=== PATIENT | female | born 1985 | race Caucasian/White ===

== ENCOUNTER 2017-08-14 21:20 | Emergency (ER) | payer OTHER ==
[~2017-08-14] VITALS: Ht 165.1 cm; Wt 68.0 kg
--- NOTE | 2017-08-14 22:01 | Emergency Room Report ---
History of Present Illness General Chief Complaint: Vomiting Source: Patient Present Illness HPI 31-year-old female history of anxiety, CRPS (chronic regional pain syndrome), presenting with abdominal pain and vomiting for one day. Complains of generalized abdominal pain. 5 episodes of nonbilious nonbloody vomiting. No diarrhea. Abdominal pain comes and goes. Denies any dysuria or hematuria. No constipation. Denies any abdominal surgeries in the past. Denies any drug use Allergies: Uncoded Allergies: STERI STRIPS (Allergy, Unknown, 08/14/17) Patient History Past Medical History: see triage record Past Surgical History: none Pertinent Family History: none Last Menstrual Period: A MONTH AGO Reviewed Nursing Documentation: PMH: Agreed; PSxH: Agreed Nursing Documentation-PMH History Of Psychiatric Problem: Yes Review of Systems All Other Systems: negative except mentioned in HPI Physical Exam Vital Signs Date Time Temp Pulse Resp B/P (MAP) Pulse Ox O2 Delivery O2 Flow Rate FiO2 08/14/17 21:26 99.2 131 17 137/89 97 Room Air 99.1 Sp02 EP Interpretation: reviewed, normal General Appearance: alert, GCS 15, non-toxic, moderate distress Head: normocephalic, atraumatic Eyes: bilateral eye normal inspection, bilateral eye PERRL, bilateral eye EOMI ENT: normal ENT inspection, normal pharynx, normal voice, moist mucus membranes Neck: normal inspection, full range of motion, supple Respiratory: normal inspection, lungs clear, normal breath sounds, no respiratory distress, no retraction, no wheezing, speaking full sentences, chest symmetrical Cardiovascular #1: normal capillary refill, tachycardia Cardiovascular #2: 2+ radial (R), 2+ radial (L) Gastrointestinal: other - Soft abdomen, nondistended, periumbilical left lower quadrant and right lower quadrant tenderness, no guarding or rigidity no rebound Musculoskeletal: normal inspection, back normal, normal range of motion, non- tender Neurologic: normal inspection, alert, oriented x3, responsive, motor strength/ tone normal, sensory intact, normal gait, speech normal Psychiatric: normal inspection, judgement/insight normal, memory normal Skin: normal inspection, normal color, no rash, warm/dry, well hydrated, normal turgor Medical Decision Making Diagnostic Impression: Primary Impression: Abdominal pain Additional Impressions: Constipation Vomiting ER Course 31-year-old female with abdominal pain Differential Diagnosis: Gastritis, gastroenteritis, cholecystitis, appendicitis, diverticulitis,UTI/ pyelo Plan: Basic labs, ua Zofran, pain control, IVF CT abdopelvis ER course: Patient has remained stable during ED stay. Pain improved. vomiting more controlled nontoxic appearing labs unremarkable CT showing prominent amt of stool no other abnormalities noted repeat abd exam nontender and soft vitals improved - hr 90 will dc home Disposition: Patient is to be discharged to home. Patient is instructed to follow up with their primary care doctor within 5 days. Strict return precautions discussed with patient such as fever, chills, worsening/severe abdominal pain, nausea, vomiting, black or bloody stools, which may indicate severe illness. Patient verbalizes understanding and agrees with plan. Please note that this Emergency Department Report was dictated using [email or web address] master/mistress technology software, occasionally this can lead to erroneous entry secondary to interpretation by the dictation equipment Rhythm Strip EP Interpretation: Yes Rate: 111 Rhythm: NSR, no PVCs, no ectopy Laboratory Tests Test 08/14/17 23:00 08/14/17 23:58 White Blood Count 8.0 K/UL (4.8-10.8) Red Blood Count 5.55 M/UL (4.20-5.40) H Hemoglobin 15.0 G/DL (12.0-16.0) Hematocrit 45.5 % (37.0-47.0) Mean Corpuscular Volume 82 FL (80-99) Mean Corpuscular Hemoglobin 27.1 PG (27.0-31.0) Mean Corpuscular Hemoglobin Concent 33.0 G/DL (32.0-36.0) Red Cell Distribution Width 12.3 % (11.6-14.8) Platelet Count 201 K/UL (150-450) Mean Platelet Volume 9.6 FL (6.5-10.1) Neutrophils (%) (Auto) 82.2 % (45.0-75.0) H Lymphocytes (%) (Auto) 14.0 % (20.0-45.0) L Monocytes (%) (Auto) 3.7 % (1.0-10.0) Eosinophils (%) (Auto) 0.0 % (0.0-3.0) Basophils (%) (Auto) 0.1 % (0.0-2.0) Sodium Level 138 MMOL/L (136-145) Potassium Level 3.5 MMOL/L (3.5-5.1) Chloride Level 103 MMOL/L (98-107) Carbon Dioxide Level 26 MMOL/L (21-32) Anion Gap 9 mmol/L (5-15) Blood Urea Nitrogen 11 mg/dL (7-18) Creatinine 0.8 MG/DL (0.55-1.30) Estimate Glomerular Filtration Rate > 60 mL/min (>60) Glucose Level 125 MG/DL (74-106) H Calcium Level 9.0 MG/DL (8.5-10.1) Total Bilirubin 0.6 MG/DL (0.2-1.0) Aspartate Amino Transferase (AST) 36 U/L (15-37) Alanine Aminotransferase (ALT) 69 U/L (12-78) Alkaline Phosphatase 71 U/L (46-116) Total Protein 7.3 G/DL (6.4-8.2) Albumin 3.9 G/DL (3.4-5.0) Globulin 3.4 g/dL Albumin/Globulin Ratio 1.1 (1.0-2.7) Lipase 85 U/L (73-393) Human Chorionic Gonadotropin, Quant 1 mIU/mL (1-6) Serum Alcohol < 3 mg/dL CT/MRI/US Diagnostic Results CT/MRI/US Diagnostic Results : Imaging Test Ordered: CT ABDO PELVIS Impression CT ABDOMEN & PELVIS With Contrast: Prominent volume of stool, query constipation. Right adnexal cyst. No free air. No substantial free fluid Last Vital Signs Date Time Temp Pulse Resp B/P (MAP) Pulse Ox O2 Delivery O2 Flow Rate FiO2 08/14/17 21:26 99.2 131 17 137/89 97 Room Air 99.1 Disposition: HOME, SELF-CARE Condition: Improved Scripts Sennosides (SENNA LAXATIVE) 8.6 Mg Tablet 8.6 MG PO DAILY for 5 Days, #5 TAB Prov: Retino,Clairose M.D. 08/15/17 Docusate Sodium* (COLACE*) 100 Mg Capsule 100 MG ORAL THREE TIMES A DAY, #21 CAP Prov: Retino,Clairose M.D. 08/15/17 Ondansetron Odt* (ZOFRAN ODT*) 4 Mg Tab.rapdis 4 MG ORAL Q6H PRN for Nausea & Vomiting, #15 TAB 0 Refills Prov: Lawrence Berman M.D. 08/15/17 Famotidine (PEPCID) 40 Mg Tablet 40 MG PO DAILY, #7 TAB 0 Refills Prov: Lawrence Berman M.D. 08/15/17 Referrals: NON PHYSICIAN (PCP) Lawrence Berman M.D. Aug 14, 2017 22:01
[2017-08-14 23:15] LABS: BASOPHILS % (AUTO) 0.1 % (0.0-2.0); HEMATOCRIT 45.5 % (37.0-47.0); MEAN CORPUSCULAR VOLUME 82 FL (80-99); MONOCYTES % (AUTO) 3.7 % (1.0-10.0); NEUTROPHILS % (AUTO) 82.2 % (45.0-75.0); PLATELET COUNT 201 K/UL (150-450); RED BLOOD COUNT 5.55 M/UL (4.20-5.40); RED CELL DISTRIBUTION WIDTH 12.3 % (11.6-14.8)
[2017-08-14 23:44] LABS: ANION GAP 9 mmol/L (5-15); BLOOD UREA NITROGEN 11 mg/dL (7-18); CARBON DIOXIDE 26 MMOL/L (21-32); CHLORIDE 103 MMOL/L (98-107); CREATININE 0.8 MG/DL (0.55-1.30); POTASSIUM 3.5 MMOL/L (3.5-5.1); SODIUM 138 MMOL/L (136-145)
[2017-08-14 23:48] LABS: ALANINE AMINOTRANSFERASE 69 U/L (12-78); ALBUMIN 3.9 G/DL (3.4-5.0); ALBUMIN/GLOBULIN RATIO 1.1 (1.0-2.7); ALKALINE PHOSPHATASE 71 U/L (46-116); ASPARTATE AMINO TRANSFERASE 36 U/L (15-37); BILIRUBIN,TOTAL 0.6 MG/DL (0.2-1.0)
[2017-08-15 00:45] VITALS: BP 137/89
[2017-08-15] MEDS ORDERED: Metoclopramide 10mg/2ml Inj IVP ONE (01:15)
[2017-08-15] MEDS ORDERED: PEPCID40 MG PO (01:17)
[2017-08-15] MEDS ORDERED: ZOFRAN ODT4 MG ORAL (01:17)
[2017-08-15] MEDS ORDERED: SENNA LAXATIVE8.6 MG PO (01:28)
[2017-08-15] MEDS ORDERED: COLACE100 MG ORAL (01:28)
[2017-08-15 01:45] VITALS: BP 116/59
[2017-08-15 01:50] VITALS: BP 116/59
--- NOTE | 2017-08-15 08:47 | Diagnostic Imaging Report ---
Indication: Abdominal pain Technique: Continuous helical transaxial imaging of the abdomen and pelvis was obtained from the lung bases to the pubic symphysis during intravenous contrast administration. Coronal 2-D reformats were also obtained. Study obtained in a Siemens sensation [address] Automatic Exposure Control was utilized. Total Dose length Product (DLP): 610.[address] Dose Index Volume (CTDIvol): 11.66 mGy Comparison: None Findings: There is a moderate amount of formed stool with distention of the rectum and colon. The liver is unremarkable. The spleen, pancreas, gallbladder and kidneys are unremarkable. There is no free fluid or free air. Appendix not diffusely seen. There are no secondary signs of acute appendicitis. There is no hydronephrosis. The right adnexa there is a suggestion of a 2.4 cm cyst. This may be further evaluated with ultrasound as needed. Uterus is noted. The bladder is unremarkable. IMPRESSION: Right ovarian cyst suspected. Evaluation with ultrasound could be done as needed. Moderate fecal retention. [facility] has communicated the preliminary results to the Emergency Department. Their findings are largely concordant with this report. The CT scanner at [facility] is accredited by the [employer] and the scans are performed using dose optimization techniques as appropriate to a performed exam including Automatic Exposure control.
== END 2017-08-15 01:50 | disposition home or self-care (01) ==
LOC: EDBD 21:20 → EMR 21:30
DX: R10.9 Unspecified abdominal pain (principal); K59.00 Constipation, unspecified; R11.0 Nausea
CPT/HCPCS: 36415; 74177; 80053; 83690; 84702; 85025; 96374; 96375; 99284; G0480; J2405; J2765; Q9967; S0028; 80329